=== PATIENT | male | born 2000 | race African-American/Black ===

== ENCOUNTER 2025-04-17 21:43 | Emergency (ER) | payer OTHER, SELFPAY ==
--- NOTE | ~2025-04-17 | CT_ITS ---
CLINICAL INDICATION: Palpable abnormality in the soft tissues of the left buttock COMPARISON: None. TECHNIQUE: Multiple contiguous axial images of the abdomen and pelvis were performed without the admi nistration of intravenous contrast The dose-length product (DLP) was 1728.86 mGy-cm. Automated exposure control and iterative reconstruction technique were employed. FINDINGS/OBSERVATIONS: Visualized lower thorax: The bilateral lung bases are clear. The heart is of normal size, with a small pericardial effusion. Small hiatal hernia is present. Liver: The liver demonstrates homogeneous attenuation and is enlarged measuring 22 cm in longitudinal dimens ion. Gallbladder and biliary system: The gallbladder is surgically absent. Pancreas: Limited evaluation of the pancreas secondary to the lack of intravenous contrast. Spleen: The spleen demonstrates homogeneous attenuation and is not enlarged. Kidneys: The bilateral kidneys are unremarkable, without hydronephrosis or renal calculi. Adrenal glands: Unremarkable. Gastrointestinal tract: Colonic diverticulosis without surrounding inflammatory change. Appendix: The air-filled appendix is of normal caliber (axial series, images 127 through 152) Vasculature: Unremarkable. Lymph nodes: Limited evaluation without intravenous contrast. Pathologically enlarged lymph nodes within the bilateral groins without morphologic suspicion. Pelvic structures: The bladder is decompressed, and otherwise unremarkable. The prostate gland is not enlarged. Body wall and musculoskeletal: Superficial to the level of the coccyx is a focus of induration within the soft tissues measuring 3.1 x 2.6 x 2.6 cm which may correspond to the abnormality described in patient's history. An additional focus of induration is identified to the left of midline along the gluteal fold measuri ng 3.1 x 3.6 cm. No focus of fluid attenuation is identified within either area of induration within the soft tissues. No significant degenerative disease within the lower thoracic or lumbosacral spine. IMPRESSION: No focus of fluid attenuation is identified within either area of induration of the soft tissues, as detailed above. Hepatomegaly is incidentally noted. Reviewed, dictated and finalized at location A.
[2025-04-17 21:44] VITALS: PULSE 126; RESP 20; TEMP 36.6; O2SAT 97
--- NOTE | 2025-04-17 21:47 | ED_ITS ---
HPI - Skin/Abscess/Foreign Bdy General Chief complaint: Wound/Laceration Stated complaint: cyst Time Seen by Provider: 04/17/25 21:47 Source: patient Mode of arrival: ambulatory Limitations: no limitations History of Present Illness HPI narrative: patient is a 24-year-old male with a left intergluteal fold distally abscess formation. Patient gets recurrent abscess formations. He has hidradenitis as a new diagnosis per the primary doctor. He just finished a round of clindamycin. No fever chills. Significant pain at the site of the abscess. MD complaint: abscess/boil Onset (ago): day(s) ( 3) Location: buttocks ( left intergluteal fold) Severity: moderate Severity scale (1-10): 7 Quality: aching and sharp Pain Consistency: intermittent Relieving factors: immobilization Exacerbating factors: palpation and movement Context: other ( patient gets recurrent abscesses around his bottom and buttocks areas here with similar recurrent finding on his left inner gluteal fold) Associated symptoms: denies other symptoms Treatments prior to arrival: none Related Data Home Medications ?Medication ?Instructions ?Recorded ?Confirmed ?Last Taken ?Type No Home Medications 04/17/25 04/17/25 Unknown History Allergies Allergy/AdvReac Type Severity Reaction Status Date / Time No Known Allergies Allergy Verified 04/17/25 21:47 Review of Systems Review of Systems: All systems reviewed & are unremarkable except as noted in HPI and below Constitutional: Constitutional: Reports no additional constitutional complaints Eyes: Eyes: Reports no additional eye complaints ENT: Reports system reviewed and no additional complaints, except as documented Cardiovascular: Cardiovascular: Reports no additional cardiovascular complaints Respiratory: Respiratory: Reports no additional respiratory complaints Gastrointestinal: Gastrointestinal: Reports no additional gastrointestinal complaints Genitourinary: Genitourinary: Reports no additional male genitourinary complaints Musculoskeletal: Musculoskeletal: Reports no additional musculoskeletal complaints Integumentary/Breasts: Skin/Breast: Reports system reviewed and no additional complaints, except as docu Neurologic: Reports system reviewed and no additional complaints, except as documented Psychiatric: Psychiatric: Reports no additional psychiatric complaints Endocrine: Endocrine: Reports no additional endocrine complaints Hematologic/Lymphatic: Hematologic/Lymphatic: Reports no additional hematologic/lymphatic complaints Allergic/Immunologic: Allergic/Immunologic: Reports no additional allergic/immunologic complaints Exam Const: General: healthy appearing Nutritional Appearance: well nourished Orientation/consciousness: patient oriented x3 Limitations: no limitations HENMT: Head: normal to inspection Ears: external ears normal Face/Nose/Sinus: Normal external nose present Eyes: Conjunctivae: conjunctivae normal Pupils: Equal, round and reactive pupils present EOM: EOMs intact bilaterally Neck: Neck: normal visual inspection Chest: Chest palpation & inspection: normal inspection of the chest Resp: Effort & Inspection: normal respiratory effort and not labored Auscultation: clear to auscultation bilaterally and no crackles Cardio: Rate: regular rate Rhythm: regular rhythm Heart sounds: no murmurs GI: Inspection: non-distended GI Palp: Yes Soft to palpation, No Tenderness to palpation present (GI), No Guarding due to palpation present (GI), No Rigid due to palpation, No Hernia present, No Palpable mass present and No Rebound tenderness present Auscultation: normal bowel sounds : General: Yes bladder normal to palpation Back/Spine/Pelvis: Back: no CVA tenderness Skin: General skin exam: normal color Rashes: rash noted Wounds: no wounds Other: left distal inner gluteal fold has a large abscess formation with tenderness to palpation and no open areas; 5 cm Neuro: General: patient oriented x3, moves all extremities, no meningeal signs, no focal motor deficits and CN's II-XI intact bilaterally Extrem: General: normal to inspection Psych: Mental Status: mental status grossly normal Affect: normal affect Attitude: cooperative Course Vital Signs Vital signs: Vital Signs Temperature 36.6 C 04/17/25 21:44 Pulse Rate 126 H 04/17/25 21:44 Respiratory Rate 20 04/17/25 21:44 Pulse Oximetry 97 04/17/25 21:44 Oxygen Delivery Room Air 04/17/25 21:44 Temperature 36.2 C L 04/17/25 22:53 Pulse Rate 85 04/17/25 22:53 Respiratory Rate 18 04/17/25 22:53 Blood Pressure 174/94 H 04/17/25 22:53 Pulse Oximetry 97 04/17/25 22:53 Oxygen Delivery Room Air 04/17/25 22:53 Procedures Other Procedure Procedure 1: Other Procedure: Left gluteal abscess: Area cleaned with iodine, semi sterile procedure done, area anesthetized with 10 cc lidocaine, scalpel used to open area at 2 different sites, blunt dissection done with hemostats and uneventful and unfruitful pus drainage, procedure was abandoned and patient tolerated well without complications, we will transfer patient for surgery consult for a deep abscess repair MDM - Skin/Abscess/Foreign Bdy MDM Narrative Medical decision making narrative: patient is a 24-year-old male with an abscess formation on his gluteal fold. We will do antibiotics. We will I and D the area and pack it with iodine formation. We will give pain control. Attempted I and D was unsuccessful. We were not able to get pus drainage. This is a deep abscess. We discussed transfer and he will accept transfer to [facility] for surgery consult. Discharge Plan Discharge Clinical Impression: Abscess of gluteal region Patient Disposition: Acute Care Hospital Condition: Stable Patient Language: Indonesian Prescriptions: No Action No Home Medications Follow-up/Referrals: Helen Earl MD [Physician] - Time of Disposition: 01:57
[2025-04-17 22:53] VITALS: BP 174/94; PULSE 85; RESP 18; TEMP 36.2; O2SAT 97
--- NOTE | 2025-04-17 23:20 | PC.NURSE ---
Consent signed for I&D.
[2025-04-18] MEDS: HYDROcodone/acetaminophen (*CRX) 10-325 MG TABLET 1 TAB PO (00:30)
[2025-04-18] MEDS: LIDOCAINE 1% LOCAL INJ 10 ML VIAL INFILTRATE (00:31)
[2025-04-18 01:30] VITALS: BP 140/85; PULSE 77; RESP 18; O2SAT 97
--- NOTE | 2025-04-18 02:01 | PC.NURSE ---
Pt wants transfer to [place] for surgical procedure of abscess. Call placed to [place] for hospitalist per ERP Dr Mitchell request.
[2025-04-18] MEDS: MORPHINE SULFATE (*CRX) 2 MG/ML INJ IV PUSH ×2 (02:52→04:04)
[2025-04-18 03:02] VITALS: BP 156/83; PULSE 71; RESP 18; TEMP 36.1; O2SAT 95
--- NOTE | 2025-04-18 03:15 | PC.NURSE ---
Pt resting, on his phone awaiting EMS for transfer.
[2025-04-18 04:24] LABS: Basophils Absolute Auto 0.05 K/mm3 (0.00-0.10); Basophils Percent Auto 0.3 % (0.0-1.0); Eosinophils Absolute Auto 0.37 K/mm3 (0.02-0.50); Eosinophils Percent Auto 2.5 % (1.0-6.0); Hematocrit 39.9 % (40.0-54.0); Hemoglobin 12.3 g/dL (14.0-18.0); Immature Granulocyte Absolute 0.05 K/mm3 (0.00-0.00); Immature Granulocyte Percent A 0.3 % (0.0-0.0); Lymphocytes Percent Auto 19.5 % (18.0-42.0); Mean Corpuscular HGB Conc 30.8 g/dL (32-36); Mean Corpuscular Hemoglobin 21.2 pg (27.0-31.0); Mean Corpuscular Volume 68.8 fL (78.0-102.0); Mean Platelet Volume 10.5 fl (8.7-11.0); Monocytes Absolute Auto 0.94 K/mm3 (0.10-0.90); Monocytes Percent Auto 6.3 % (2.0-11.0); Neutrophils Absolute Auto 10.59 K/mm3 (1.70-7.20); Neutrophils Percent Auto 71.1 % (50.0-70.0); Platelet Count Result 246 K/mm3 (150-420); Red Cell Distribution Width 15.8 % (11.6-14.4); White Blood Count 14.9 K/mm3 (4.8-10.8)
[2025-04-18 04:47] LABS: Alanine Aminotransferase 17 U/L (6-50); Albumin Level 3.6 g/dL (3.5-5.1); Alkaline Phosphatase 99 U/L (38-126); Anion Gap 5 mmol/L (4-12); Aspartate Amino Transferase 28 U/L (17-59); Bilirubin,Total 0.5 mg/dL (0.2-1.3); Blood Urea Nitrogen 9 mg/dL (9-20); Calcium 8.3 mg/dL (8.4-10.2); Carbon Dioxide 24 mmol/L (22-30); Chloride 108 mmol/L (98-107); Estimated CRCL calculation 193 ml/min; Estimated Glomerular Filt Rate > 60; Glucose 102 mg/dL (65-110); Osmolality Calculated 282 mOsm/kg (285-295); Sodium 137 mmol/L (137-145); Total Protein 7.9 g/dL (6.3-8.2)
[2025-04-18 04:53] LABS: Partial Thromboplastin Time 28.7 Sec (23.9-30.70); Prothrombin Time 11.2 Seconds (9.50-12.1)
[2025-04-18 05:04] VITALS: BP 154/79; PULSE 85; RESP 18; TEMP 37; O2SAT 100
--- NOTE | 2025-04-20 13:07 | PC.NURSE ---
blood preliminary, no growth
--- NOTE | 2025-04-24 16:45 | PC.NURSE ---
BLOOD CULTURE FINAL NO GROWTH
== END 2025-04-18 05:04 | disposition short-term general hospital (02) ==
PROVIDERS: Emergency Provider Emergency Medicine; Referring Provider Internal Medicine
DX: L02.31 Cutaneous abscess of buttock (principal)
CPT/HCPCS: 36415; 74176; 80053; 85025; 85610; 85730; 87040; 96372; 96374; 96376; 99285; A9270; J0696; J2003; J2270

== ENCOUNTER 2025-04-18 05:39 | Observation (INO) | payer OTHER, SELFPAY ==
[2025-04-18] VITALS (12 sets, daily range): BP systolic 99–139; BP diastolic 45–81; PULSE 69–81; RESP 11–24; TEMP 36.7–37.4; O2SAT 95–100; BMI 48.6
--- NOTE | 2025-04-18 05:52 | ADMGEN ---
This patient, Karen Puri, was admitted to Medical Room 250-. Patient/family oriented to hospital policies and general routines including ID bracelet, bed and alarms, visiting hours, pain management, procedures, bathroom and other care routines, personal items, smoking policy, room service/diet, and visiting hours. Information on how to activate the Rapid Response Team has been discussed. Patient/Family are encouraged to report perceived risks to care and to ask questions if they do not understand what they are told or what they should do.
[2025-04-18] MEDS: HYDROmorphone HCL INJ (*CRX) 2 MG/ML VIAL 0.5 MG IV PUSH ×2 (06:36→09:19)
[2025-04-18] MEDS: PIPERACILLN/TAZ 3.375GM/NS50ML 3.375 GM/50 ML BAG IVPB (06:36)
--- NOTE | 2025-04-18 08:45 | PM.IMHP ---
H&P: HPI History of Present Illness Date/Time: 04/18/25 08:45 Chief Complaint: Pain Narrative: Patient is a 24-year-old male hx multiple abscesses, obestity, cholecystectomy in December, who presented to [facility] and was admitted for a left perirectal abscess. 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 He does not currently have a primary care provider. He estimates he has been getting 6-10 abscesses a year in the last 2-3 years. None prior to that. Generally perirectal, axilla, or scalp. He was in [place] 2-3 weeks ago and had an right perirectal abscess drained. Question of hydradenitis. He saw dermatology for symptoms. Completed clindamycin a few days ago. He subsequently developed a perirectal pain on the left side and presented to the ED. He is unsure if he has had cultures previously, isn't aware of results. Hasn't noticed improvement with clindamycin previously. No known antibiotic allergies and has been treated with Bactrim before. Never with a prolonged course of IV antibiotics, has been able to switch to oral antibiotics. Smokes cigars and vapes, no cigarettes. Rare ETOH and no recreational drug use. He reports shaking chills yesterday but not fever. Significant pain at the site of the abscess. ED attempted an I&D but was unable to drain). Reporting significant pain and unable to lie on his back. WBC 14.9. Labs otherwise unremarkable. BP elevated to 150's in the ED in the setting of pain but otherwise stable and afebrile. 04/17/26 CT No focus of fluid attenuation is identified within either area of induration of the soft tissues, as detailed above. Hepatomegaly is incidentally noted. Review of Systems Review of Systems: 12 point review of symptoms negative No weight loss or gain. No vomiting, diarrhea, or constipation PMFSH Social History Social History Smoking status: Current some day smoker Tobacco type: cigars and e-cigarettes/vaping Alcohol intake: current Substance use: never Do You Feel Safe in your Home?: Yes Lack of Transportation: No Lack of Food: Never True Current Housing: I Have Housing Concerned About Future Housing: No Difficulty Paying Gas/Electric Bills: No Difficulty Paying for Meds: No Currently Unemployed: No Education: High School Diploma/GED Difficulty w/ Childcare or Family Care: No Spiritual care concerns: No Meds Home Medications and Allergies Home Medications ?Medication ?Instructions ?Recorded ?Confirmed ?Type No Home Medications 04/17/25 04/18/25 History Allergies Allergy/AdvReac Type Severity Reaction Status Date / Time ibuprofen Allergy Severe Difficulty Verified 04/18/25 10:00 Breathing Vital Signs Vital Signs - 24 hr 04/18/25 05:46 04/18/25 06:00 Temperature 98.6 F Pulse Rate 76 Respiratory Rate 18 Blood Pressure 134/75 Pulse Oximetry 98 Oxygen Delivery Room Air Exam Narrative: General - Awake and alert. No acute distress Eyes - PERRLA, EOM intact ENT - No thrush, No erythema Neck - No noticeable or palpable swelling Lymph Nodes - No lymphadenopathy Cardiovascular - RRR no m/r/g, no JVD Lungs: Clear to auscultation, No wheezing, use of accessory muscles, no crackles Skin - Skin warm and dry, no wounds or rashes Abdomen - Normal bowel sounds, abdomen soft and nontender, obese Perineal--TTP and induration left perirectal Extremities - No edema, cyanosis or clubbing Musculoskeletal - 5/5 strength, normal range of motion, no swollen or erythematous joints. Neurological ? Alert and oriented x 3, CN 2-12 grossly intact. Psych: Normal mood and affect Assessment and Plan Assessment and plan (1) Abscess of gluteal region: Code(s): L02.31 - Cutaneous abscess of buttock Status: Acute Assessment and Plan: Blood cultures x2 pending WBC 14.9 --Follow CBC, Check ESR, and CRP --Given frequent abscesses, check HgbA1c and HIV --Surgery consulted --[place] topical for wound --Personally reviewed CT image and area of induration on exam is likely the area on CT that measures 3.1 x 2.6 x 2.6 cm --Pain control: Having significant pain. Scheduled oxy CR 10mg x4 doses. Tylenol 1000mg QID. Oxy 5-10mg q4 prn, dilaudid for breakthrough pain --Swab for Staph --Change Zosyn to Unasyn and doxy BID --Follow cultures if becomes drainable (2) Cigar smoker: Code(s): F17.290 - Nicotine dependence, other tobacco product, uncomplicated Status: Acute Assessment and Plan: Smokes cigars and vapes --Nicotine patch 14mg daily Quality VTE Prophylaxis VTE prophylaxis: pharmacologic ordered Hospitalist MIPS Advance Care Plan I have confirmed that the patient's Advanced Care Plan is present, code status is documented, or surrogate decision maker is listed in patient medical record.: Yes Medication Reconciliation I have utilized all available resources to obtain, update and review the patients current medications (includes all prescriptions, OTC, herbals, cannabis, and nutritional supplements).: Yes
[2025-04-18] MEDS: HYDROmorphone HCL INJ (*CRX) 2 MG/ML VIAL 1 MG IV PUSH ×3 (10:45→19:49)
[2025-04-18] MEDS: NICOTINE (*PBKC) 14 MG PATCH 1 PATCH TRANSDERM (10:46)
[2025-04-18] MEDS: SODIUM CHLORIDE 0.9% IV 1,000 ML 100 ML IV CONT (10:46)
--- NOTE | 2025-04-18 11:06 | WPDANESEPPF ---
Anes - Initial Pre Proc Eval Procedure: Operation Date: 04/18/25 13:00 Proposed Procedures p I&D Sariah-Rectal Abscess - Denis Barajas DO Date/Time: 04/18/25 11:06 Surgeon: Jcarlos Greco MD Pre Op Diagnosis: Perirectal abscess Patient Data Age: 24 Gender: M Height: 1.75 m Weight: 149.5 kg Last Vital Signs Temp 37.0 C 04/18/25 06:00 Pulse 76 04/18/25 06:00 Resp 18 04/18/25 06:00 BP 134/75 04/18/25 06:00 Pulse Ox 98 04/18/25 06:00 O2 Del Method Room Air 04/18/25 05:46 Allergies Allergy/AdvReac Type Severity Reaction Status Date / Time ibuprofen Allergy Severe Difficulty Verified 04/18/25 10:00 Breathing Home Medications ?Medication ?Instructions ?Recorded ?Confirmed ?Type No Home Medications 04/17/25 04/18/25 History Patient hx anesthesia problems: none Family hx anesthesia problems: none Results Review: All pre-operative results and documents have been reviewed as part of the pre-operative evaluation. [facility] Social History Social History Smoking status: Current some day smoker Tobacco type: cigars and e-cigarettes/vaping Alcohol intake: current Substance use: never Do You Feel Safe in your Home?: Yes Lack of Transportation: No Lack of Food: Never True Current Housing: I Have Housing Concerned About Future Housing: No Difficulty Paying Gas/Electric Bills: No Difficulty Paying for Meds: No Currently Unemployed: No Education: High School Diploma/GED Difficulty w/ Childcare or Family Care: No Spiritual care concerns: No Anes - Eval Final PreProcedure Day of Procedure 04/18/25 11:06 Patient weight: morbidly obese Heart: regular rate and rhythm Lungs: clear to auscultation Airway: Mallampati scale class II Neurological: alert and oriented Last oral intake: >/= 8 hours ASA classification: III Emergent: no Anesthetic plan: proceed Anesthesia type and monitoring: general LMA and standard monitoring Results Review: All pre-operative results and documents have been reviewed as part of the pre-operative evaluation. Informed Consent: The patient's anesthetic plan and its attendant risks and benefits were discussed with the patient/family/POA. Questions were solicited and answers provided to the satisfaction of the patient/family/POA.
--- NOTE | 2025-04-18 11:23 | WPDHPUPDATE1 ---
History and Physical Update Update Date/Time: 04/18/25 11:23 History and Physical has been reviewed, including an updated exam of the patient. There are NO changes in the patient's condition. Risks, benefits, and alternatives have been discussed and questions answered. Patient agrees to proceed with procedure.
--- NOTE | 2025-04-18 11:23 | PM.CNGS ---
Assessment and Plan Assessment and plan (1) Perirectal abscess: Code(s): K61.1 - Rectal abscess Status: Acute Assessment and Plan: The patient has evidence of a left perirectal abscess that is very tender. He would not be able to tolerate a bedside procedure based on his significant tenderness. I have recommended incision and drainage perirectal abscess under anesthesia in the operating room. I discussed the procedure, risks, benefits, and alternatives. Questions were answered. History of Present Illness Consult details Consult date: 04/18/25 Reason for consult: other (Perirectal abscess) Requesting physician: Zina Ramos PA-C Narrative: This is a 24-year-old man who I am asked to see for a perirectal abscess. Over the past 2 or 3 days he has noticed increasing pain and swelling in the left perirectal region. He presented to [facility] overnight and attempted incision and drainage was performed but no purulence fluid was drained. He was then transferred to [facility] for further treatment. Patient was started on antibiotics. He has a history of some infections to his skin over the past couple years. Denies any other changes. A CT was performed in the emergency department and no drainable abscess was identified. Review of Systems Review of Systems: All systems reviewed & are unremarkable except as noted in HPI and below Constitutional: Constitutional: Denies chills and Denies fever(s) Eyes: Eyes: Denies change in vision ENT: Denies hearing loss, Denies neck pain and Denies sore throat Cardiovascular: Cardiovascular: Denies chest pain and Denies dyspnea Respiratory: Respiratory: Denies cough, Denies dyspnea and Denies wheezing Gastrointestinal: Gastrointestinal: Reports as per HPI Genitourinary: Genitourinary: Denies hematuria and Denies dysuria Musculoskeletal: Musculoskeletal: Denies arthralgias, Denies joint swelling and Denies neck pain Allergic/Immunologic: Allergic/Immunologic: Denies wheezing PMFSH Social History Social History Smoking status: Current some day smoker Tobacco type: cigars and e-cigarettes/vaping Alcohol intake: current Substance use: never Do You Feel Safe in your Home?: Yes Lack of Transportation: No Lack of Food: Never True Current Housing: I Have Housing Concerned About Future Housing: No Difficulty Paying Gas/Electric Bills: No Difficulty Paying for Meds: No Currently Unemployed: No Education: High School Diploma/GED Difficulty w/ Childcare or Family Care: No Spiritual care concerns: No Meds Home Medications and Allergies Home Medications ?Medication ?Instructions ?Recorded ?Confirmed ?Type No Home Medications 04/17/25 04/18/25 History Allergies Allergy/AdvReac Type Severity Reaction Status Date / Time ibuprofen Allergy Severe Difficulty Verified 04/18/25 10:00 Breathing Vital Signs Vital Signs - 24 hr 04/18/25 05:46 04/18/25 06:00 Temperature 98.6 F Pulse Rate 76 Respiratory Rate 18 Blood Pressure 134/75 Pulse Oximetry 98 Oxygen Delivery Room Air Exam Const: General: alert; No acute distress Orientation/consciousness: patient oriented x3 Limitations: no limitations HENMT: Head: normocephalic and atraumatic Ears: hearing grossly normal bilaterally Face/Nose/Sinus: Normal external nose present and Normal nares present Mouth: Yes Normal oral and palatal mucosa present and Yes moist mucous membranes Eyes: General: appearance normal, both eyes and all related structures Conjunctivae: conjunctivae normal Sclera: sclerae normal Pupils: Equal, round and reactive pupils present EOM: EOMs intact bilaterally Neck: Neck: normal visual inspection, full ROM, no lymphadenopathy, supple and no JVD Lymphatic: no lymphadenopathy noted Chest: Chest palpation & inspection: normal inspection of the chest Resp: Effort & Inspection: normal respiratory effort and able to speak in complete sentences Auscultation: clear to auscultation bilaterally Percussion: percussion normal Cardio: Jugular venous distension: no JVD Rate: regular rate Rhythm: regular rhythm Heart sounds: S1 normal heart sound present and S2 normal heart sound present Peripheral pulses: Peripheral pulses 2+ throughout GI: Inspection: normal to inspection Auscultation: normal bowel sounds Other: Left perirectal fluctuance and tenderness. Two small incisions just posterior to the area of fluctuance. No purulence drainage noted. : General: Yes no CVA tenderness Back/Spine/Pelvis: Back: no CVA tenderness Skin: General skin exam: normal color and dry skin Neuro: General: patient oriented x3, gait normal, moves all extremities, no focal motor deficits and CN's II-XI intact bilaterally Cranial nerves: Yes Equal, round and reactive pupils present Speech: normal speech Extrem: General: normal to inspection and capillary refill normal Results Labs Labs: All other labs normal.
[2025-04-18] MEDS: AMPICILLIN SULB 3 GM/NS 100 ML 3 GM/100 ML VIAL IVPB ×3 (11:40→23:11)
[2025-04-18] MEDS: LACTATED RINGERS 1,000 ML 30 ML IV CONT (12:06)
--- NOTE | 2025-04-18 12:30 | W.PM.PROC2 ---
Procedure Note - Detailed Date of Procedure 04/18/25 Pre-op Diagnosis Left buttock abscess Post-op Diagnosis Same Procedure Performed Incision and drainage of complex left buttock abscess Surgeon Denis Barajas, DO Anesthesia General and Local (0.5% bupivacaine with epinephrine) Indications This is a 24-year-old man who presented with pain and swelling in the left inner buttock region. This started about 2-3 days ago and has progressively worsened. He was seen in the emergency department in [place] last night and incision and drainage was attempted but unsuccessful. He was then transferred to [facility] for further treatment. Discussions were made with the patient about treatment options and decision was made to proceed with incision and drainage of left buttock abscess under anesthesia. Findings Incision and drainage of complex left buttock abscess was performed. The patient had an inner left buttock abscess somewhat near the inguinal crease. This did not appear to be communicating with the region of the anus and perirectal region. Incision and drainage was performed and loculations were broken up. Cultures were taken of the purulence fluid. The wound was then irrigated and packed with half-inch iodoform gauze. Description of Procedure Procedure as well as risks, benefits, and alternatives were discussed with the patient. Written consent was obtained and placed in chart prior to procedure. Patient was brought back to surgical suite. He was placed supine on operating table. Time-out was done to confirm patient and procedure. He was then intubated by the anesthesia department. He was then repositioned into dorsal lithotomy position. His perirectal region was prepped and draped in sterile fashion using Betadine prep. 0.5% bupivacaine with epinephrine was infiltrated locally directly over the area of fluctuance. A 2 cm incision was then made over the area of fluctuance using a 15 blade scalpel in the left inner buttock region. Purulence fluid was drained. Cultures were taken with a culture swab. Then broke up any loculations using my finger and suction. The wound was then irrigated with sterile saline. Hemostasis was achieved with electrocautery. No other pockets of infection were identified. The wound was then packed with half-inch iodoform gauze. 4 x 4 gauze, ABD pad, and mesh underwear were applied. The patient was then awakened from anesthesia, extubated, and transferred to recovery. Estimated Blood Loss 5 Packing Yes (Half-inch iodoform gauze) Complications No immediate complications Condition Stable Disposition Floor [facility] Billing Surgery - Charge Forward: Surgery Billing
[2025-04-18] MEDS: fentaNYL CITRATE INJ (*CRX) 100 MCG/2 ML VIAL 25 MCG IV PUSH (12:50)
[2025-04-18] MEDS: oxyCODONE/ACETAMINOPHEN (*CRX) 10-325 MG TABLET 1 TAB PO ×2 (13:52→23:11)
[2025-04-18] MEDS: LACTATED RINGERS 1,000 ML 100 ML IV CONT (13:55)
[2025-04-18] MEDS: ONDANSETRON INJ 4 MG/2 ML VIAL IV PUSH (14:17)
[2025-04-18] MEDS: ACETAMINOPHEN 325 MG TABLET 650 MG PO ×2 (17:05→23:11)
[2025-04-18] MEDS: polyethylene glycoL 3350 17 GM POWD.PACK PO (17:06)
[2025-04-18] MEDS: SENNOSIDES 8.6 MG TABLET PO (20:46)
[2025-04-18] MEDS: DOXYCYCLINE HYCLATE 100 MG TABLET PO (20:46)
[2025-04-19] MEDS: HYDROmorphone HCL INJ (*CRX) 2 MG/ML VIAL 1 MG IV PUSH ×5 (02:40→23:26)
[2025-04-19 03:14] VITALS: BP 117/48; PULSE 52; RESP 17; TEMP 36.7; O2SAT 96
[2025-04-19 05:35] LABS: Basophils Percent Auto 0.3 % (0.2-1.2); Eosinophils Absolute Auto 0.4 K/mm3 (0-0.3); Eosinophils Percent Auto 3.9 % (0-4.4); Hematocrit 39.8 % (42.0-52.0); Hemoglobin 11.9 g/dL (14.0-18.0); Immature Granulocyte Absolute 0.04 K/mm3 (0.00-0.031); Immature Granulocyte Percent A 0.4 % (0-0.5); Lymphocytes Absolute Auto 2.07 K/mm3 (0.9-3.2); Lymphocytes Percent Auto 20.3 % (18.3-44.2); Mean Corpuscular HGB Conc 29.9 g/dl (32-36); Mean Corpuscular Volume 70.3 fl (80-100); Mean Platelet Volume 10.6 fl (7.4-10.4); Monocytes Absolute Auto 0.7 K/mm3 (0.1-0.6); Monocytes Percent Auto 6.9 % (2.6-8.5); Neutrophils Percent Auto 68.2 % (45.5-73.1); Platelet Count Result 249 k/mm3 (150-375); Red Blood Count 5.66 M/mm3 (4.6-6.20); White Blood Count 10.2 K/mm3 (4.5-10.0)
[2025-04-19 05:56] LABS: Anion Gap 6 mmol/L (4-12); Blood Urea Nitrogen 9 mg/dL (9-20); Calcium 8.5 mg/dL (8.4-10.2); Carbon Dioxide 25 mmol/L (22-30); Chloride 106 mmol/L (98-107); Cholesterol 152 mg/dL (0-200); Estimated CRCL calculation 180 ml/min; Estimated Glomerular Filt Rate > 60; Glucose 105 mg/dL (65-110); HDL Direct 25 mg/dL; Potassium 4.1 mmol/L (3.4-5.0); Sodium 137 mmol/L (137-145); Triglycerides 80 mg/dL (<150)
[2025-04-19] MEDS: ACETAMINOPHEN 325 MG TABLET 650 MG PO ×4 (06:01→23:26)
[2025-04-19] MEDS: AMPICILLIN SULB 3 GM/NS 100 ML 3 GM/100 ML VIAL IVPB ×4 (06:02→23:26)
[2025-04-19] MEDS: oxyCODONE/ACETAMINOPHEN (*CRX) 10-325 MG TABLET 1 TAB PO ×3 (06:02→21:13)
[2025-04-19 06:05] LABS: LDL Cholesterol Direct 93 mg/dL
[2025-04-19 06:35] LABS: HIV 1/2 Ab P24 Ag Result Negative (Negative)
[2025-04-19 07:03] LABS: Erythrocyte Sedimentation Rate 34 mm/hr (0-20)
--- NOTE | 2025-04-19 07:28 | P.PNIM_ITS ---
Progress Note: A&P Assessment and Plan (1) Abscess of gluteal region: Code(s): L02.31 - Cutaneous abscess of buttock Status: Inactive Assessment and Plan: * Blood cultures x2 pending * In ED WBC 14.9 * Follow CBC, Check ESR, and CRP * Given frequent abscesses, check HgbA1c and HIV * Hibicleans topical for wound * Personally reviewed CT image and area of induration on exam is likely the area on CT that measures 3.1 x 2.6 x 2.6 cm * Pain control * Scheduled oxy CR 10mg x4 doses. * Tylenol 1000mg QID. * Oxy 5-10mg q4 prn * dilaudid for breakthrough pain * Unasyn and doxy BID * General Surgery consult * POD 1 Incision and drainage of complex left buttock abscess * Post op wound care * Gen surg to monitor * Wound and blood culture still pending (2) Cigar smoker: Code(s): F17.290 - Nicotine dependence, other tobacco product, uncomplicated Status: Acute Assessment and Plan: Smokes cigars and vapes --Nicotine patch 14mg daily Subjective Date/time seen: 04/19/25 07:28 Interval history: Patient is a 24-year-old male hx multiple abscesses, obesity, cholecystectomy in December, who presented to [facility] and was admitted for a left perirectal abscess. 04/19/2025 POD 1 Incision and drainage of complex left buttock abscess. Patient sitting uncomfortably in bed at time of examination. Still endorsing some surgical site tenderness and drainage. Surgery still following, will likely repack wound today, pre discharged tomorrow. Blood work reassuring, leukocytosis improving, otherwise unremarkable. HIV serology negative Review of Systems Review of Systems: 12 point review of symptoms negative No weight loss or gain. No vomiting, diarrhea, or constipation Exam Narrative: General - Awake and alert. No acute distress Eyes - PERRLA, EOM intact ENT - No thrush, No erythema Neck - No noticeable or palpable swelling Lymph Nodes - No lymphadenopathy Cardiovascular - RRR no m/r/g, no JVD Lungs: Clear to auscultation, No wheezing, use of accessory muscles, no crackles Skin - Skin warm and dry, no wounds or rashes Abdomen - Normal bowel sounds, abdomen soft and nontender, obese Perineal--Packed left abscess wound of inner buttock region. draining. No erthyema or fluctuance Extremities - No edema, cyanosis or clubbing Musculoskeletal - 5/5 strength, normal range of motion, no swollen or erythematous joints. Neurological ? Alert and oriented x 3, CN 2-12 grossly intact. Psych: Normal mood and affect Objective Data Vital Signs Vital Signs: Vital Signs - 24 hr 04/18/25 12:06 04/18/25 12:20 04/18/25 12:35 Temperature 99.3 F Pulse Rate 80 76 81 Respiratory Rate 12 20 11 L Blood Pressure 99/45 L 118/71 129/73 Pulse Oximetry 100 100 100 Oxygen Delivery Simple Face Mask Simple Face Mask Room Air Oxygen Flow Rate 10 10 04/18/25 12:50 04/18/25 13:05 04/18/25 13:20 Temperature Pulse Rate 78 81 80 Respiratory Rate 24 H 21 H 22 H Blood Pressure 132/75 139/75 126/75 Pulse Oximetry 100 96 95 Oxygen Delivery Room Air Room Air Room Air Oxygen Flow Rate 04/18/25 14:32 04/18/25 15:15 04/18/25 19:15 Temperature 98.3 F Pulse Rate 81 81 71 Respiratory Rate 18 18 18 Blood Pressure 115/81 118/74 115/59 L Pulse Oximetry 97 95 97 Oxygen Delivery Oxygen Flow Rate 04/18/25 20:00 04/18/25 23:10 04/19/25 03:14 Temperature 98.0 F 98.1 F Pulse Rate 71 69 52 L Respiratory Rate 18 17 17 Blood Pressure 112/78 117/48 L Pulse Oximetry 97 98 96 Oxygen Delivery Room Air Oxygen Flow Rate Intake/Output Intake/Output: Intake & Output 04/16/25 04/17/25 04/18/25 04/19/25 23:59 23:59 23:59 23:59 Intake Total 1890 250 Output Total 700 400 Balance 1190 -150 Meds/Results Medications: Active Medications Generic Name Dose Route Start Last Admin Trade Name Freq PRN Reason Stop Dose Admin Acetaminophen 650 mg 04/18/25 18:00 04/19/25 06:01 Acetaminophen 325 Mg Tablet PO 650 mg Q6HR [place] Administration Chlorhexidine Gluconate 1 applic 04/18/25 10:45 04/18/25 10:37 Chlorhexidine Gluconate 4% Sandra 120 Ml Btl TOPICAL Not Given DAILY [facility] Diphenhydramine HCl 25 mg 04/18/25 13:30 Diphenhydramine Hcl Inj 50 Mg/Ml Vial IV PUSH Q6H PRN Itching Doxycycline Hyclate 100 mg 04/18/25 09:00 04/18/25 20:46 Doxycycline Hyclate 100 Mg Tablet PO 100 mg Q12HR [place] Administration Hydromorphone HCl 1 mg 04/18/25 15:22 04/19/25 02:40 Hydromorphone Hcl Inj (*Crx) 2 Mg/Ml Vial IV PUSH 1 mg Q2H PRN Administration Breakthrough Pain Rated 7-10 or NPO Hydromorphone HCl 0.5 mg 04/18/25 15:22 Hydromorphone Hcl Inj (*Crx) 2 Mg/Ml Vial IV PUSH Q2H PRN Breakthrough Pain Rated 4-6 or NPO Ampicillin Sodium/Sulbactam Sodium 3 gm in 100 mls @ 200 mls/hr 04/18/25 12:00 04/19/25 06:02 Unasyn 3 Gm/Ns 100 Ml IVPB 200 mls/hr Q6H [place] Administration Magnesium Hydroxide 30 ml 04/18/25 11:00 Magnesium Hydroxide Susp 30 Ml Udc PO QAM PRN Constipation Naloxone HCl 0.1 mg 04/18/25 13:30 Naloxone Hcl 0.4 Mg/Ml Vial IV PUSH Q2M PRN Opiate Reversal Nicotine 1 patch 04/18/25 10:30 04/18/25 10:46 Nicotine (*Pbkc) 14 Mg Patch TRANSDERM 1 patch DAILY [place] Administration Ondansetron HCl 4 mg 04/18/25 10:05 04/18/25 14:17 Ondansetron Inj 4 Mg/2 Ml Vial IV PUSH 4 mg Q4H PRN Administration Nausea And Vomiting Oxycodone/Acetaminophen 1 tablet 04/18/25 13:30 Oxycodone/Acetaminophen (*Crx) 5-325 Mg Tablet PO Q4H PRN Pain Rated 4-6 Oxycodone/Acetaminophen 1 tab 04/18/25 13:30 04/19/25 06:02 Oxycodone/Acetaminophen (*Crx) 10-325 Mg Tablet PO 1 tab Q6H PRN Administration Pain Rated 7-10 Polyethylene Glycol 17 gm 04/18/25 17:00 04/18/25 17:06 Polyethylene Glycol 3350 17 Gm Powd.Pack PO 17 gm QAM [place] Administration Senna 8.6 mg 04/18/25 21:00 04/18/25 20:46 Sennosides 8.6 Mg Tablet PO 8.6 mg HS [facility] Administration Labs Labs: Laboratory Results - last 24 hr 04/19/25 05:02 WBC 10.2 H RBC 5.66 Hgb 11.9 L Hct 39.8 L MCV 70.3 L MCH 21.0 L MCHC 29.9 L RDW 16.0 H Plt Count 249 MPV 10.6 H Immature Gran % (Auto) 0.4 Neut % (Auto) 68.2 Lymph % (Auto) 20.3 [place] % (Auto) 6.9 Eos % (Auto) 3.9 Baso % (Auto) 0.3 Lymph # (Auto) 2.07 [place] # (Auto) 0.7 H Eos # (Auto) 0.4 H Baso # (Auto) 0.0 Abs Immat Gran (auto) 0.04 H Absolute Neuts (auto) 7.0 H Absolute Nucleated RBC 0.000 Nucleated RBC % 0.0 ESR 34 H Sodium 137 Potassium 4.1 Chloride 106 Carbon Dioxide 25 Anion Gap 6 BUN 9 Creatinine 0.78 Estim Creat Clear Calc 180 Estimated GFR > 60 Glucose 105 Hemoglobin A1c 6.0 H Calcium 8.5 C-Reactive Protein 7.0 H Triglycerides 80 Cholesterol 152 LDL Cholesterol Direct 93 HDL Direct 25 HIV 1&2 Ab/P24 Ag 4thGn Negative Quality VTE Prophylaxis VTE prophylaxis: pharmacologic ordered
[2025-04-19] MEDS: polyethylene glycoL 3350 17 GM POWD.PACK PO (08:42)
[2025-04-19] MEDS: NICOTINE (*PBKC) 14 MG PATCH 1 PATCH TRANSDERM (08:42)
[2025-04-19] MEDS: DOXYCYCLINE HYCLATE 100 MG TABLET PO ×2 (08:42→21:13)
--- NOTE | 2025-04-19 13:58 | P.PNGS_ITS ---
Progress Note: A&P Assessment and Plan (1) Abscess of gluteal region: Code(s): L02.31 - Cutaneous abscess of buttock Status: Acute Assessment and Plan: * Doing well on POD#1. OK to discharge home. Recommend continuing antibiotics for 7-10 more days. Follow up with PCP back home. (2) Abscess of left groin: Code(s): L02.214 - Cutaneous abscess of groin Status: Acute Assessment and Plan: * Should improve with current antibiotics. Might eventually need I&D if not resolving. Subjective Subjective Date/Time Seen: 04/19/25 13:58 Interval history: Doing well on POD#1. No fevers. Pain controlled. He noted some drainage in his inner groin above his pubis but does not have any pain in this region. Exam Skin: Other: Packing removed. No purulent drainage. Slight bloody drainage. No surrounding erythema. In upper left groin there are two small abscess that are open with scant purulent drainage. No tenderness to palpation. Objective Data Vital Signs Vital Signs: Vital Signs - 24 hr 04/18/25 14:32 04/18/25 15:15 04/18/25 19:15 Temperature 98.3 F Pulse Rate 81 81 71 Respiratory Rate 18 18 18 Blood Pressure 115/81 118/74 115/59 L Pulse Oximetry 97 95 97 Oxygen Delivery 04/18/25 20:00 04/18/25 23:10 04/19/25 03:14 Temperature 98.0 F 98.1 F Pulse Rate 71 69 52 L Respiratory Rate 18 17 17 Blood Pressure 112/78 117/48 L Pulse Oximetry 97 98 96 Oxygen Delivery Room Air 04/19/25 08:35 Temperature Pulse Rate Respiratory Rate Blood Pressure Pulse Oximetry Oxygen Delivery Room Air Intake/Output Intake/Output: Intake & Output 04/16/25 04/17/25 04/18/25 04/19/25 23:59 23:59 23:59 23:59 Intake Total 1890 570 Output Total 700 400 Balance 1190 170 Meds/Results Medications: Active Medications Generic Name Dose Route Start Last Admin Trade Name Freq PRN Reason Stop Dose Admin Acetaminophen 650 mg 04/18/25 18:00 04/19/25 12:33 Acetaminophen 325 Mg Tablet PO 650 mg Q6HR [place] Administration Chlorhexidine Gluconate 1 applic 04/18/25 10:45 04/18/25 10:37 Chlorhexidine Gluconate 4% Sandra 120 Ml Btl TOPICAL Not Given DAILY [place] Diphenhydramine HCl 25 mg 04/18/25 13:30 Diphenhydramine Hcl Inj 50 Mg/Ml Vial IV PUSH Q6H PRN Itching Doxycycline Hyclate 100 mg 04/18/25 09:00 04/19/25 08:42 Doxycycline Hyclate 100 Mg Tablet PO 100 mg Q12HR [place] Administration Hydromorphone HCl 1 mg 04/18/25 15:22 04/19/25 11:28 Hydromorphone Hcl Inj (*Crx) 2 Mg/Ml Vial IV PUSH 1 mg Q2H PRN Administration Breakthrough Pain Rated 7-10 or NPO Hydromorphone HCl 0.5 mg 04/18/25 15:22 Hydromorphone Hcl Inj (*Crx) 2 Mg/Ml Vial IV PUSH Q2H PRN Breakthrough Pain Rated 4-6 or NPO Ampicillin Sodium/Sulbactam Sodium 3 gm in 100 mls @ 200 mls/hr 04/18/25 12:00 04/19/25 13:05 Unasyn 3 Gm/Ns 100 Ml IVPB Infused Q6H [place] Infusion Magnesium Hydroxide 30 ml 04/18/25 11:00 Magnesium Hydroxide Susp 30 Ml Udc PO QAM PRN Constipation Naloxone HCl 0.1 mg 04/18/25 13:30 Naloxone Hcl 0.4 Mg/Ml Vial IV PUSH Q2M PRN Opiate Reversal Nicotine 1 patch 04/18/25 10:30 04/19/25 08:42 Nicotine (*Pbkc) 14 Mg Patch TRANSDERM 1 patch DAILY [place] Administration Ondansetron HCl 4 mg 04/18/25 10:05 04/18/25 14:17 Ondansetron Inj 4 Mg/2 Ml Vial IV PUSH 4 mg Q4H PRN Administration Nausea And Vomiting Oxycodone/Acetaminophen 1 tablet 04/18/25 13:30 Oxycodone/Acetaminophen (*Crx) 5-325 Mg Tablet PO Q4H PRN Pain Rated 4-6 Oxycodone/Acetaminophen 1 tab 04/18/25 13:30 04/19/25 06:02 Oxycodone/Acetaminophen (*Crx) 10-325 Mg Tablet PO 1 tab Q6H PRN Administration Pain Rated 7-10 Polyethylene Glycol 17 gm 04/18/25 17:00 04/19/25 08:42 Polyethylene Glycol 3350 17 Gm Powd.Pack PO 17 gm QAM [place] Administration Senna 8.6 mg 04/18/25 21:00 04/18/25 20:46 Sennosides 8.6 Mg Tablet PO 8.6 mg HS [place] Administration Labs Labs: Laboratory Results - last 24 hr 04/19/25 05:02 WBC 10.2 H RBC 5.66 Hgb 11.9 L Hct 39.8 L MCV 70.3 L MCH 21.0 L MCHC 29.9 L RDW 16.0 H Plt Count 249 MPV 10.6 H Immature Gran % (Auto) 0.4 Neut % (Auto) 68.2 Lymph % (Auto) 20.3 [place] % (Auto) 6.9 Eos % (Auto) 3.9 Baso % (Auto) 0.3 Lymph # (Auto) 2.07 [place] # (Auto) 0.7 H Eos # (Auto) 0.4 H Baso # (Auto) 0.0 Abs Immat Gran (auto) 0.04 H Absolute Neuts (auto) 7.0 H Absolute Nucleated RBC 0.000 Nucleated RBC % 0.0 ESR 34 H Sodium 137 Potassium 4.1 Chloride 106 Carbon Dioxide 25 Anion Gap 6 BUN 9 Creatinine 0.78 Estim Creat Clear Calc 180 Estimated GFR > 60 Glucose 105 Hemoglobin A1c 6.0 H Calcium 8.5 C-Reactive Protein 7.0 H Triglycerides 80 Cholesterol 152 LDL Cholesterol Direct 93 HDL Direct 25 HIV 1&2 Ab/P24 Ag 4thGn Negative
[2025-04-19] MEDS: CHLORHEXIDINE GLUCONATE 4% SOL 120 ML BTL 1 APPLIC TOPICAL (15:41)
[2025-04-19 17:02] VITALS: BP 140/61; PULSE 61; RESP 18; TEMP 36.3; O2SAT 98
[2025-04-19 20:16] VITALS: BP 117/60; PULSE 64; RESP 18; TEMP 36.5; O2SAT 98
[2025-04-19] MEDS: SENNOSIDES 8.6 MG TABLET PO (21:13)
[2025-04-19 21:35] VITALS: PULSE 64; RESP 18; O2SAT 98
[2025-04-20] MEDS: ONDANSETRON INJ 4 MG/2 ML VIAL IV PUSH (00:58)
[2025-04-20] MEDS: oxyCODONE/ACETAMINOPHEN (*CRX) 10-325 MG TABLET 1 TAB PO (03:16)
[2025-04-20 04:32] VITALS: BP 100/47; PULSE 74; RESP 18; TEMP 36.5; O2SAT 97
[2025-04-20 05:15] LABS: Basophils Percent Auto 0.4 % (0.2-1.2); Eosinophils Absolute Auto 0.5 K/mm3 (0-0.3); Eosinophils Percent Auto 4.9 % (0-4.4); Hematocrit 39.4 % (42.0-52.0); Hemoglobin 11.7 g/dL (14.0-18.0); Immature Granulocyte Absolute 0.03 K/mm3 (0.00-0.031); Immature Granulocyte Percent A 0.3 % (0-0.5); Lymphocytes Absolute Auto 2.39 K/mm3 (0.9-3.2); Lymphocytes Percent Auto 25.4 % (18.3-44.2); Mean Corpuscular HGB Conc 29.7 g/dl (32-36); Mean Corpuscular Hemoglobin 20.9 pg (26-34); Mean Corpuscular Volume 70.4 fl (80-100); Mean Platelet Volume 10.6 fl (7.4-10.4); Monocytes Absolute Auto 0.7 K/mm3 (0.1-0.6); Monocytes Percent Auto 6.9 % (2.6-8.5); Neutrophils Absolute Auto 5.8 K/mm3 (1.3-6.7); Neutrophils Percent Auto 62.1 % (45.5-73.1); Platelet Count Result 242 k/mm3 (150-375); Red Cell Distribution Width 15.9 % (11.5-14.5); White Blood Count 9.4 K/mm3 (4.5-10.0)
[2025-04-20 05:28] LABS: Anion Gap 7 mmol/L (4-12); Blood Urea Nitrogen 8 mg/dL (9-20); Calcium 8.7 mg/dL (8.4-10.2); Carbon Dioxide 25 mmol/L (22-30); Chloride 105 mmol/L (98-107); Estimated CRCL calculation 189 ml/min; Estimated Glomerular Filt Rate > 60; Glucose 103 mg/dL (65-110); Potassium 4.2 mmol/L (3.4-5.0); Sodium 137 mmol/L (137-145)
[2025-04-20] MEDS: ACETAMINOPHEN 325 MG TABLET 650 MG PO ×2 (05:33→11:45)
[2025-04-20] MEDS: AMPICILLIN SULB 3 GM/NS 100 ML 3 GM/100 ML VIAL IVPB (05:33)
[2025-04-20 05:46] LABS: Platelet Estimate Adequate (Adequate)
[2025-04-20 05:47] LABS: Anisocytosis 1+; Burr Cells 2+; Poikilocytosis 1+
[2025-04-20 05:48] LABS: Schistocytes Rare
--- NOTE | 2025-04-20 07:30 | P.PNIM_ITS ---
Progress Note: A&P Assessment and Plan (1) Abscess of gluteal region: Code(s): L02.31 - Cutaneous abscess of buttock Status: Acute Assessment and Plan: * Blood cultures x2 pending * In ED WBC 14.9 * Follow CBC, Check ESR, and CRP * Given frequent abscesses, check HgbA1c and HIV * Hibicleans topical for wound * Personally reviewed CT image and area of induration on exam is likely the area on CT that measures 3.1 x 2.6 x 2.6 cm * Pain control * Scheduled oxy CR 10mg x4 doses. * Tylenol 1000mg QID. * Oxy 5-10mg q4 prn * dilaudid for breakthrough pain * Unasyn and doxy BID * General Surgery consult * POD 1 Incision and drainage of complex left buttock abscess * Post op wound care * Gen surg to monitor * Wound and blood culture still pending (2) Cigar smoker: Code(s): F17.290 - Nicotine dependence, other tobacco product, uncomplicated Status: Acute Assessment and Plan: Smokes cigars and vapes --Nicotine patch 14mg daily Subjective Date/time seen: 04/20/25 07:30 Interval history: Patient is a 24-year-old male hx multiple abscesses, obesity, cholecystectomy in December, who presented from [facility] and admitted for a left perirectal abscess. 04/19/2025 POD 1 Incision and drainage of complex left buttock abscess. Patient sitting uncomfortably in bed at time of examination. Still endorsing some surgical site tenderness and drainage. Surgery still following, will likely repack wound today, pre discharged tomorrow. Blood work reassuring, leukocytosis improving, otherwise unremarkable. HIV serology negative. 04/20- POD 2, I/D of complex lt buttock abscess with DR Barajas. Review of Systems Review of Systems: 12 point review of symptoms negative No weight loss or gain. No vomiting, diarrhea, or constipation Exam Narrative: General - Awake and alert. No acute distress Eyes - PERRLA, EOM intact ENT - No thrush, No erythema Neck - No noticeable or palpable swelling Lymph Nodes - No lymphadenopathy Cardiovascular - RRR no m/r/g, no JVD Lungs: Clear to auscultation, No wheezing, use of accessory muscles, no crackles Skin - Skin warm and dry, no wounds or rashes Abdomen - Normal bowel sounds, abdomen soft and nontender, obese Perineal--Packed left abscess wound of inner buttock region. draining. No erthyema or fluctuance Extremities - No edema, cyanosis or clubbing Musculoskeletal - 5/5 strength, normal range of motion, no swollen or erythematous joints. Neurological ? Alert and oriented x 3, CN 2-12 grossly intact. Psych: Normal mood and affect Objective Data Vital Signs Vital Signs: Vital Signs - 24 hr 04/19/25 08:35 04/19/25 17:02 04/19/25 20:16 Temperature 97.4 F L 97.7 F Pulse Rate 61 64 Respiratory Rate 18 18 Blood Pressure 140/61 117/60 Pulse Oximetry 98 98 Oxygen Delivery Room Air 04/19/25 21:35 04/20/25 04:32 Temperature 97.7 F Pulse Rate 64 74 Respiratory Rate 18 18 Blood Pressure 100/47 L Pulse Oximetry 98 97 Oxygen Delivery Room Air Intake/Output Intake/Output: Intake & Output 04/17/25 04/18/25 04/19/25 04/20/25 23:59 23:59 23:59 23:59 Intake Total 1890 1440 550 Output Total 700 400 Balance 1190 1040 550 Meds/Results Medications: Active Medications Generic Name Dose Route Start Last Admin Trade Name Freq PRN Reason Stop Dose Admin Acetaminophen 650 mg 04/18/25 18:00 04/20/25 05:33 Acetaminophen 325 Mg Tablet PO 650 mg Q6HR [place] Administration Chlorhexidine Gluconate 1 applic 04/18/25 10:45 04/19/25 15:41 Chlorhexidine Gluconate 4% Sandra 120 Ml Btl TOPICAL 1 applic DAILY [place] Administration Diphenhydramine HCl 25 mg 04/18/25 13:30 Diphenhydramine Hcl Inj 50 Mg/Ml Vial IV PUSH Q6H PRN Itching Doxycycline Hyclate 100 mg 04/18/25 09:00 04/19/25 21:13 Doxycycline Hyclate 100 Mg Tablet PO 100 mg Q12HR [place] Administration Hydromorphone HCl 1 mg 04/18/25 15:22 04/19/25 23:26 Hydromorphone Hcl Inj (*Crx) 2 Mg/Ml Vial IV PUSH 1 mg Q2H PRN Administration Breakthrough Pain Rated 7-10 or NPO Hydromorphone HCl 0.5 mg 04/18/25 15:22 Hydromorphone Hcl Inj (*Crx) 2 Mg/Ml Vial IV PUSH Q2H PRN Breakthrough Pain Rated 4-6 or NPO Ampicillin Sodium/Sulbactam Sodium 3 gm in 100 mls @ 200 mls/hr 04/18/25 12:00 04/20/25 05:33 Unasyn 3 Gm/Ns 100 Ml IVPB 200 mls/hr Q6H [place] Administration Magnesium Hydroxide 30 ml 04/18/25 11:00 Magnesium Hydroxide Susp 30 Ml Udc PO QAM PRN Constipation Naloxone HCl 0.1 mg 04/18/25 13:30 Naloxone Hcl 0.4 Mg/Ml Vial IV PUSH Q2M PRN Opiate Reversal Nicotine 1 patch 04/18/25 10:30 04/19/25 08:42 Nicotine (*Pbkc) 14 Mg Patch TRANSDERM 1 patch DAILY [place] Administration Ondansetron HCl 4 mg 04/18/25 10:05 04/20/25 00:58 Ondansetron Inj 4 Mg/2 Ml Vial IV PUSH 4 mg Q4H PRN Administration Nausea And Vomiting Oxycodone/Acetaminophen 1 tablet 04/18/25 13:30 Oxycodone/Acetaminophen (*Crx) 5-325 Mg Tablet PO Q4H PRN Pain Rated 4-6 Oxycodone/Acetaminophen 1 tab 04/18/25 13:30 04/20/25 03:16 Oxycodone/Acetaminophen (*Crx) 10-325 Mg Tablet PO 1 tab Q6H PRN Administration Pain Rated 7-10 Polyethylene Glycol 17 gm 04/18/25 17:00 04/19/25 08:42 Polyethylene Glycol 3350 17 Gm Powd.Pack PO 17 gm QAM [place] Administration Senna 8.6 mg 04/18/25 21:00 04/19/25 21:13 Sennosides 8.6 Mg Tablet PO 8.6 mg HS [place] Administration Labs Labs: Laboratory Results - last 24 hr 04/20/25 04:48 WBC 9.4 RBC 5.60 Hgb 11.7 L Hct 39.4 L MCV 70.4 L MCH 20.9 L MCHC 29.7 L RDW 15.9 H Plt Count 242 MPV 10.6 H Immature Gran % (Auto) 0.3 Neut % (Auto) 62.1 Lymph % (Auto) 25.4 [place] % (Auto) 6.9 Eos % (Auto) 4.9 H Baso % (Auto) 0.4 Lymph # (Auto) 2.39 [place] # (Auto) 0.7 H Eos # (Auto) 0.5 H Baso # (Auto) 0.0 Abs Immat Gran (auto) 0.03 Absolute Neuts (auto) 5.8 Absolute Nucleated RBC 0.000 Band Neutrophils % Not Reportable Nucleated RBC % 0.0 Platelet Estimate Adequate Poikilocytosis 1+ Anisocytosis 1+ Terrence Cells 2+ Schistocytes Rare Sodium 137 Potassium 4.2 Chloride 105 Carbon Dioxide 25 Anion Gap 7 BUN 8 L Creatinine 0.74 Estim Creat Clear Calc 189 Estimated GFR > 60 Glucose 103 Calcium 8.7 Quality VTE Prophylaxis VTE prophylaxis: pharmacologic ordered
[2025-04-20] MEDS: oxyCODONE/ACETAMINOPHEN (*CRX) 5-325 MG TABLET 1 TABLET PO (08:09)
[2025-04-20] MEDS: DOXYCYCLINE HYCLATE 100 MG TABLET PO (08:10)
[2025-04-20 08:45] VITALS: BP 121/61; PULSE 59; RESP 18; TEMP 36.3; O2SAT 97
--- NOTE | 2025-04-20 11:14 | P.DS_ITS ---
DS: Admitting Diagnosis Discharge Date 04/20 Admitting Diagnosis perirectal abscess. DS: Discharge Diagnosis Discharge Diagnosis (1) Abscess of gluteal region: Code(s): L02.31 - Cutaneous abscess of buttock Status: Acute (2) Cigar smoker: Code(s): F17.290 - Nicotine dependence, other tobacco product, uncomplicated Status: Acute DS: Summary Hospital Course Hospital Course: Patient is a 24-year-old male hx multiple abscesses, obestity, cholecystectomy in December, who presented to [facility] and was admitted for a left perirectal abscess. 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 He does not currently have a primary care provider. He estimates he has been getting 6-10 abscesses a year in the last 2-3 years. None prior to that. Generally perirectal, axilla, or scalp. He was in [place] 2-3 weeks ago and had an right perirectal abscess drained. Question of hydradenitis. He saw dermatology for symptoms. Completed clindamycin a few days ago. He subsequently developed a perirectal pain on the left side and presented to the ED. He is unsure if he has had cultures previously, isn't aware of results. Hasn't noticed improvement with clindamycin previously. No known antibiotic allergies and has been treated with Bactrim before. Never with a prolonged course of IV antibiotics, has been able to switch to oral antibiotics. Pt was seen per Dr Barajas and I/d was done. Packing removed 04/19. No purulent drainage, no surrounding erythema. In upper left groin there are two small abscess that are open with scant purulent drainage. No tenderness to palpation. Pt was on IV antibiotics and transitioned to PO Augmentin today. will send RX for Augmentin 14 more doses and doxy 14 more doses to completed the duration fo antibiotics recommended per Dr Barajas. Keep area clean and dry and f/u with PCP once home. Status at Discharge Functional status at discharge: independent ambulation Overall status at discharge: patient is progressing back to baseline Time Spent with Patient Time attestation: Total time spent providing and/or coordinating discharge services: Time spent: Greater than 30 minutes Exam Narrative: General - Awake and alert. No acute distress Eyes - PERRLA, EOM intact ENT - No thrush, No erythema Neck - No noticeable or palpable swelling Lymph Nodes - No lymphadenopathy Cardiovascular - RRR no m/r/g, no JVD Lungs: Clear to auscultation, No wheezing, use of accessory muscles, no crackles Skin - Skin warm and dry, no wounds or rashes Abdomen - Normal bowel sounds, abdomen soft and nontender, obese Perineal--Packed left abscess wound of inner buttock region. draining. No erthyema or fluctuance Extremities - No edema, cyanosis or clubbing Musculoskeletal - 5/5 strength, normal range of motion, no swollen or erythematous joints. Neurological ? Alert and oriented x 3, CN 2-12 grossly intact. Psych: Normal mood and affect Const: General: comfortable DS: Data Data Completed and Pending Labs on day of discharge: Labs from last 24 hours 04/20/25 04:48 WBC 9.4 RBC 5.60 Hgb 11.7 L Hct 39.4 L MCV 70.4 L MCH 20.9 L MCHC 29.7 L RDW 15.9 H Plt Count 242 MPV 10.6 H Immature Gran % (Auto) 0.3 Neut % (Auto) 62.1 Lymph % (Auto) 25.4 [place] % (Auto) 6.9 Eos % (Auto) 4.9 H Baso % (Auto) 0.4 Lymph # (Auto) 2.39 [place] # (Auto) 0.7 H Eos # (Auto) 0.5 H Baso # (Auto) 0.0 Abs Immat Gran (auto) 0.03 Absolute Neuts (auto) 5.8 Absolute Nucleated RBC 0.000 Band Neutrophils % Not Reportable Nucleated RBC % 0.0 Platelet Estimate Adequate Poikilocytosis 1+ Anisocytosis 1+ Terrence Cells 2+ Schistocytes Rare Sodium 137 Potassium 4.2 Chloride 105 Carbon Dioxide 25 Anion Gap 7 BUN 8 L Creatinine 0.74 Estim Creat Clear Calc 189 Estimated GFR > 60 Glucose 103 Calcium 8.7 Preliminary micro results at discharge 04/18/25 12:15 Anaerobic Culture - Preliminary Abscess Aerobic Culture - Preliminary Discharge Plan Discharge Attending physician on discharge: Shekhar Bueno Consulting providers: Armando Hogan; Araseli Quesada; Denis Barajas; Weston Dos Santos Discharging Clinician: Maribeth Quesada Patient Disposition: Home Activity: may shower and as tolerated Diet: heart healthy Wound Care Instructions: other - see discharge instructions Discharge Instructions: Change dressing daily with 4x4 gauze and tape or mesh underwear. OK to shower, no bathing/soaking under water until wound has closed. Complete antibiotics as prescribed. Call office for increasing pain, fevers, or other problems/questions with wound. Follow up with PCP within 1-2 weeks. Consider referral to [employer] for further evaluation of frequent skin infections and probable Hidradenitis. Patient Instructions: Antibiotic Form Patient Language: Cook Islander Stand Alone Forms: General Discharge Information, Work/School Release IP Follow-up/Referrals: PHYSICIAN,PANTOGRAPH ENGRAVER [Primary Care Provider] - 2 Weeks (f/u with PCP) Denis Barajas DO [Physician] - Other (Call office as needed or if unable to get in to see PCP back home.) Discharge Medications: New oxycodone-acetaminophen [Endocet] 5-325 mg tablet 1 tablet PO Q4H PRN (Reason: pain) Qty: 10 0RF doxycycline hyclate 100 mg Tablet 100 mg PO Q12HR Qty: 14 0RF amoxicillin-pot clavulanate 875-125 mg tablet 1 tablet PO Q12H Qty: 14 0RF No Action No Home Medications Date of admission: 04/18/25 05:39 Primary Care Provider: PHYSICIAN,PANTOGRAPH ENGRAVER Admitting Provider: Jcarlos Greco Attending physician on admission: Jcarlos Greco Condition: Improved Quality VTE Prophylaxis VTE prophylaxis: pharmacologic ordered Hospitalist MIPS Heart Failure (Exclusion) Patient has history of Heart Transplant or Left Ventricular Assistive Device?: No IF YES, STOP HERE Heart Failure (Qualifier) Patient has current or prior documentation of LVEF less than or equal to 40%, or mod/servere depressed LVSF?: No IF NO, STOP HERE
[2025-04-20] MEDS: AMOXICILLIN/CLAVULANATE K 875-125 MG TAB 1 TABLET PO (11:45)
[2025-04-20] MEDS: CHLORHEXIDINE GLUCONATE 4% SOL 120 ML BTL 1 APPLIC TOPICAL (11:45)
== END 2025-04-20 12:01 | disposition home or self-care (01) ==
PROVIDERS: Nurse Practitioner Acute Care; Surgery; Admitting Provider Internal Medicine; Visit Provider Internal Medicine
PROC: (CPT 46040; principal; 2025-04-18 13:00)
DX: L02.31 Cutaneous abscess of buttock (principal); L02.214 Cutaneous abscess of groin; F17.290 Nicotine dependence, other tobacco product, uncomplicated; E66.01 Morbid (severe) obesity due to excess calories; Z68.42 Body mass index [BMI] 45.0-49.9, adult; Z90.49 Acquired absence of other specified parts of digestive tract; Z11.4 Encounter for screening for human immunodeficiency virus [HIV]
CPT/HCPCS: 10061; 36415; 80048; 80061; 83036; 85025; 85652; 86140; 86703; 87070; 87075; 87205; A4248; A9270; G0378; G0379; G0432; J0295; J1171; J2003; J2250; J2405; J2543; J2704; J3010; J7030; J7120